=== PATIENT | male | born 1980 | race Caucasian/White ===

== ENCOUNTER → 2020-04-09 14:10 | Outpatient (CLI) | payer OTHER, SELFPAY ==
--- NOTE | 2020-04-09 14:11 | DI.RAD.S_ITS ---
PROCEDURE: XR CHEST 2V INDICATIONS: Cough, latent TB? TECHNIQUE: 2 views of the chest were acquired. COMPARISON: [facility], , CHEST 1 VIEW, 11/28/2014, 14:15. FINDINGS: Surgical changes and devices: None. Lungs and pleura: Lungs are clear. No pleural effusions or pneumothorax. Mediastinum: Mediastinal contours are normal. Heart size is normal. Bones and chest wall: No suspicious bony abnormalities. Soft tissues appear unremarkable. IMPRESSION: No acute cardiopulmonary disease. No findings to suggest active TB. Dictated by: Megan Sanabria M.D. on 04/09/2020 at 14:32 Approved by: Megan Saanbria M.D. on 04/09/2020 at 14:33
[2020-04-09 14:47] LABS: Add Manual Diff / Slide Review NO; Basophils Absolute Auto 0 /uL (0-100); Basophils Percent Auto 0.5 % (0-2); Eosinophils Absolute Auto 200 /uL (0-450); Eosinophils Percent Auto 4.4 % (2-4); Hematocrit 42.8 % (41-53); Hemoglobin 14.4 g/dL (13.5-17.5); Lymphocytes Absolute Auto 1800 /uL (1100-4500); Mean Corpuscular HGB Conc 33.6 % (30-36); Mean Corpuscular Hemoglobin 31.8 PG (26-34); Mean Corpuscular Volume 94.6 fL (80-100); Monocytes Absolute Auto 400 /uL (0-900); Monocytes Percent Auto 10.4 % (3-14); Neutrophils Absolute Auto 1700 /uL (1500-7000); Neutrophils Percent Auto 41.7 % (50-75); Platelet Count 241 X10^3/uL (150-400); Red Blood Cell Count 4.52 X10^6/uL (4.5-5.9); Red Cell Distribution Width 12.2 % (11.6-14.8); White Blood Cell Count 4.1 X10^3/uL (4.5-11.0)
[2020-04-09 14:55] LABS: Alanine Aminotransferase 58 IU/L (<50); Albumin 4.6 g/dL (3.5-5.0); Albumin Globulin Ratio 1.4 (1.0-2.8); Alkaline Phosphatase 55 U/L (38-126); Aspartate Aminotransferase 45 IU/L (17-59); BUN Creatinine Ratio 13.5 (6-22); Bilirubin Total 0.5 mg/dL (0.2-1.3); Blood Urea Nitrogen 13 mg/dL (9-20); Calcium 9.5 mg/dL (8.4-10.2); Carbon Dioxide 32 mmol/L (22-32); Chloride 100 mmol/L (98-107); Cholesterol 125 mg/dL (140-199); Estimated Glomerular Filt Rate > 60.0 mL/min (>60); Globulin 3.3 g/dL (1.7-4.1); Glucose 95 mg/dL (70-100); HDL Cholesterol 34 mg/dL (40-60); HEMOLYSIS 17 (0-50); LDL Cholesterol Calculated 50 mg/dL (<100); Potassium 4.1 mmol/L (3.4-5.1); Sodium 139 mmol/L (137-145); Total Protein 7.9 g/dL (6.3-8.2); Triglycerides 207 mg/dL (35-150)
[2020-04-09 14:56] LABS: C-Reactive Protein Quant < 0.5 mg/dL (<1.0)
[2020-04-09 15:00] LABS: Prealbumin 32.7 mg/dL (17.6-36.0)
[2020-04-09 15:10] LABS: Hemoglobin A1C% w Est Avg Glu 5.4 % (4.0-6.0)
[2020-04-09 15:20] LABS: Erythrocyte Sedimentation Rate 3 MM/HR (0-15)
[2020-04-11 15:37] LABS: QuantiFERON Mitogen Value 7.69 IU/mL (.); QuantiFERON Nil Value 0.33 IU/mL (.); QuantiFERON TB Gold Plus Negative (Negative); QuantiFERON TB1 Ag Value 0.23 IU/mL (.); QuantiFERON TB2 Ag Value 0.18 IU/mL (.)
== END ==
PROVIDERS: PCP Student in an Organized Health Care Education/Training Program; Referring Provider Student in an Organized Health Care Education/Training Program; Visit Provider Student in an Organized Health Care Education/Training Program
DX: R05 Cough (principal); R63.4 Abnormal weight loss; R73.9 Hyperglycemia, unspecified; Z13.220 Encounter for screening for lipoid disorders
CPT/HCPCS: 71046; 80053; 80061; 83036; 84134; 85025; 85651; 86140; 86480

== ENCOUNTER → 2020-09-13 08:12 | Outpatient (CLI) | payer OTHER, SELFPAY ==
--- NOTE | 2020-09-13 08:13 | DI.MRI.S_ITS ---
PROCEDURE: MR THORACIC SPINE WO CON INDICATIONS: Neck pain and right arm motor/sensory disturbances TECHNIQUE: Noncontrast sagittal T1 spine echo and T2 fast spin echo, sagittal STIR, axial T1 and T2 fast spin echo through the thoracic spine. COMPARISON: None. FINDINGS: Image quality: Excellent. Alignment and Curvature: There is normal bony alignment. Bone Marrow: Marrow is of normal overall signal. No acute vertebral body compression fractures. Spinal Cord: Visualized spinal cord is normal in size and signal. There is only a slight degree of degenerative disc height reduction and desiccation at the junction between the upper and middle thirds of the thoracic spine, but without visualized evidence of spinal or foraminal stenosis, or disc herniation. Paraspinous Soft Tissues: No paravertebral masses. Miscellaneous: On axial images, central canal and foramina appear widely patent at all scanned levels. IMPRESSION: Minimal degenerative changes at the upper thoracic spine as discussed, without spinal or foraminal stenosis through this region impinging on individual nerve roots or the thoracic cord. No disc herniation is seen. Dictated by: Giorgio Mccrary M.D. on 09/15/2020 at 15:21 Approved by: Giorgio Mccrary M.D. on 09/15/2020 at 15:22
--- NOTE | 2020-09-13 08:13 | DI.MRI.S_ITS ---
PROCEDURE: MR CERVICAL SPINE WO CON INDICATIONS: Neck pain and right arm motor/sensory disturbances TECHNIQUE: Noncontrast sagittal T1 spin echo and T2 fast spin echo, sagittal STIR, foraminal oblique sagittal T2 fast spin echo, and axial gradient echo or T2 fast spin echo through the cervical spine. COMPARISON: None. FINDINGS: Image quality: Excellent. Alignment and Curvature: There is normal bony alignment. Bone Marrow: Marrow demonstrates normal overall signal. Spinal Cord: Visualized spinal cord has normal size and signal. No cerebellar tonsillar herniation. Paraspinous Soft Tissues: No paravertebral masses. Prevertebral soft tissues are normal in thickness. C2-C3: Normal appearance. C3-C4: Normal appearance except for mild degenerative facet osteoarthritis and uncovertebral degenerative change on the right, producing mild narrowing of the right neural foramen and potential impingement on the right C4 nerve root. C4-C5: Symmetric facet and uncovertebral mild degenerative osteoarthritic change with mild narrowing of each neural foramen at this level, with potential for mild impingement on the course of the C5 nerve roots. C5-C6: Moderate degenerative disc disease, with disc height reduction and disc desiccation. There is an asymmetric posterior disc bulge, broad-based, greater at and to the left of midline. Additionally left-sided facet and uncovertebral osteoarthritis is present to a greater degree than that on the right with asymmetric left greater than right neural foraminal stenosis, with likelihood of bilateral left greater than right C6 nerve root impingement. C6-C7: There is moderate degenerative disc disease with a posterior disc bulge. This effaces CSF from the anterior thecal sac to only a mild degree, and the anterior cord is not distorted in this area. Bilateral mild facet osteoarthritis produces mild bilateral foraminal stenosis to the degree that impingement on the course of the C7 nerve roots likely is present, symmetric. C7-T1: Normal appearance. IMPRESSION: The degenerative disc disease and facet osteoarthritis along the cervical spine produces both symmetric and asymmetric impingement on nerve roots and the cervical cord, to a [id number] degree as discussed in detail by level in the body of the report above. No prior trauma or significant subluxation is seen. No disc herniation is found. Multilevel [id number] foraminal stenosis is present and the spinal stenosis is most prominent at C5-C6, left greater than right. Dictated by: Giorgio Mccrary M.D. on 09/15/2020 at 15:10 Approved by: Giorgio Mccrary M.D. on 09/15/2020 at 15:20
== END ==
PROVIDERS: PCP Student in an Organized Health Care Education/Training Program; Referring Provider Student in an Organized Health Care Education/Training Program; Visit Provider Student in an Organized Health Care Education/Training Program
DX: M47.812 Spondylosis without myelopathy or radiculopathy, cervical region (principal); M50.322 Other cervical disc degeneration at C5-C6 level; M48.02 Spinal stenosis, cervical region; R20.2 Paresthesia of skin
CPT/HCPCS: 72141; 72146

== ENCOUNTER 2020-09-15 14:09 | Emergency (ER) | payer OTHER, SELFPAY ==
[2020-09-15 14:13] VITALS: BP 141/86; PULSE 68; RESP 24; TEMP 36.4; O2SAT 99
[2020-09-15 18:06] LABS: Add Manual Diff / Slide Review NO; Basophils Absolute Auto 0 /uL (0-100); Basophils Percent Auto 0.7 % (0-2); Eosinophils Absolute Auto 0 /uL (0-450); Eosinophils Percent Auto 0.7 % (2-4); Hematocrit 44.2 % (41-53); Hemoglobin 15.2 g/dL (13.5-17.5); Lymphocytes Absolute Auto 1900 /uL (1100-4500); Lymphocytes Percent Auto 40.8 % (25-40); Mean Corpuscular HGB Conc 34.3 % (30-36); Mean Corpuscular Hemoglobin 32.8 PG (26-34); Mean Corpuscular Volume 95.5 fL (80-100); Monocytes Absolute Auto 300 /uL (0-900); Monocytes Percent Auto 7.5 % (3-14); Neutrophils Absolute Auto 2300 /uL (1500-7000); Neutrophils Percent Auto 50.3 % (50-75); Platelet Count 221 X10^3/uL (150-400); Red Blood Cell Count 4.63 X10^6/uL (4.5-5.9); Red Cell Distribution Width 12.4 % (11.6-14.8); White Blood Cell Count 4.6 X10^3/uL (4.5-11.0)
[2020-09-15 18:18] LABS: Alanine Aminotransferase 22 IU/L (<50); Albumin 4.5 g/dL (3.5-5.0); Albumin Globulin Ratio 1.3 (1.0-2.8); Alkaline Phosphatase 55 U/L (38-126); Aspartate Aminotransferase 26 IU/L (17-59); BUN Creatinine Ratio 10.6 (6-22); Bilirubin Total 0.8 mg/dL (0.2-1.3); Blood Urea Nitrogen 10 mg/dL (9-20); Calcium 9.6 mg/dL (8.4-10.2); Carbon Dioxide 34 mmol/L (22-32); Chloride 101 mmol/L (98-107); Estimated Glomerular Filt Rate > 60.0 mL/min (>60); Globulin 3.5 g/dL (1.7-4.1); Glucose 105 mg/dL (70-100); HEMOLYSIS < 15 (0-50); Lactate (Lactic Acid) 0.7 mmol/L (0.7-2.1); Potassium 4.1 mmol/L (3.4-5.1); Sodium 139 mmol/L (137-145)
[2020-09-15 19:22] VITALS: BP 139/82; PULSE 60; RESP 16; O2SAT 99
--- NOTE | 2020-09-15 19:44 | ED_ITS ---
HPI - Syncope General Chief Complaint: Syncope Stated Complaint: bunch of back issues, constant pain & stiffness Time Seen by Provider: 09/15/20 17:56 Source: patient and family Mode of arrival: Ambulatory Limitations: no limitations History of Present Illness HPI narrative: 40-year-old male nonsmoker with extensive history of chronic neck and back pain presents with his significant other and a chief complaint of 2 syncopal episodes earlier today. He states that he was having an episode severe midline back pain in the absence of any injury, fever or chills. He states he was bending over when his significant other was pressing on his back and caused a sharp episode of pain and when he attempted to stand up he became lightheaded and collapsed, stating he was either very close or completely passed out, she witnessed this and states that his episode lasted less than 10 seconds and when he tried standing again his symptoms repeated. He has had no nausea, vomiting or diarrhea. He has had no recent illness or medication change. He has no ongoing symptoms. He recently had MRI of neck and back for ongoing chronic pain with some episodes of weakness in his right arm. He is currently waiting for a call back regarding the findings. He denies any chest pain or shortness of breath. He denies any recent travel or history of blood clot. He did not lose control of his bladder. There was not a prolonged period of confusion, only a few seconds where he wondered what had happened MD complaint: loss of consciousness, felt faint, almost passed out and collapsed Onset (ago): hour(s) -: second(s) Prodromal symptoms: lightheaded Witnessed: yes - by bystander Context: standing up and related to severe pain Injuries sustained associated with event: none Current symptoms: none Treatments prior to arrival: none Related Data Home Medications Medication Instructions Recorded Confirmed THC #1 ea 04/09/20 09/05/20 cyclobenzaprine 10 mg tablet 10 mg PO DAILY PRN tab 04/09/20 09/05/20 ipratropium bromide 0.03 % nasal 2 spray NASAL BID 04/09/20 09/05/20 spray Previous Rx's Medication Instructions Recorded fluticasone propionate 50 2 spray INTRANASAL DAILY #15.8 ml 09/09/20 mcg/actuation nasal spray,suspension losartan 25 mg tablet 25 mg PO DAILY #90 tab 09/09/20 cyclobenzaprine 10 mg PO TID PRN #14 tab 09/15/20 hydrocodone-acetaminophen 1 tab PO Q4-6H PRN #20 tab 09/15/20 prednisone 20 mg tablet See Rx Instructions PO DAILY 7 09/15/20 Days #10 tab Allergies Allergy/AdvReac Type Severity Reaction Status Date / Time buspirone AdvReac Intermediate Agitation Verified 09/05/20 15:21 gabapentin AdvReac Intermediate Loss of Verified 09/05/20 15:59 libido mirtazapine AdvReac Intermediate Excessive Verified 09/05/20 15:21 sedation, muscle soreness Review of Systems Constitutional Constitutional: Denies chills, Denies fatigue, Denies fever(s), Denies frequent falls, Denies lethargy and Denies weakness Eyes Eyes: Denies change in vision, Denies eye discharge, Denies irritation and Denies loss of vision ENT Ears, Nose, Mouth, and Throat: Denies change in voice, Denies dizziness, Reports neck pain, Denies sore throat and Denies throat swelling Cardiovascular Cardiovascular: Denies chest pain, Reports syncope, Denies irregular heart rhythm, Denies lightheadedness, Denies palpitations, Denies dyspnea, Denies dyspnea on exertion and Denies orthopnea Respiratory Respiratory: Denies cough, Denies dyspnea, Denies dyspnea on exertion and Denies wheezing Gastrointestinal Gastrointestinal: Denies abdominal pain, Denies change in bowel habits, Denies diarrhea, Denies nausea and Denies vomiting Musculoskeletal Musculoskeletal: Reports back pain, Reports neck pain and Denies numbness Integumentary/Breasts Skin/Breast: Denies pruritus, Denies erythema, Denies rash and Denies wounds Neurologic Neurologic: Denies behavioral changes, Denies confusion, Denies dizziness, Reports syncope, Denies frequent falls, Denies loss of vision, Denies numbness and Denies weakness Psychiatric Psychiatric: Denies anxiety, Denies behavioral changes, Denies confusion, Denies depression, Denies homicidal ideation and Denies suicidal ideation Endocrine Endocrine: Denies fatigue, Denies flushing and Denies palpitations Hematologic/Lymphatic Hematologic/Lymphatic: Denies easy bruising Allergic/Immunologic Allergic/Immunologic: Denies urticaria, Denies throat swelling and Denies wheezing Patient History Medical History Ankle pain (~1999) Anxiety Chicken pox Chronic back pain (~1999) Foot pain Fractures Hearing loss (~1998) Positive PPD (~1998) Recurrent sinusitis (~2000) Restless leg syndrome (~2016) Shoulder pain (~2012) Substance abuse TIA (transient ischemic attack) (~2014) Tinnitus Surgical History History of nasal surgery (~02/2003) Family History Father History of heart disease Hyperlipidemia Hypertension Stroke Brother Hypertension Hyperlipidemia Mental health problem Grandfather History of heart disease Hyperlipidemia Hypertension Social History Smoking Status: Never smoker Smoking Status: Never smoker Exam Narrative Exam Narrative: GENERAL: [40] year old patient appears stated age. Well- nourished, well-developed patient, in mild distress. GCS 15 HEAD: Atraumatic. Normocephalic. EYES: Pupils equal round and reactive. Extraocular motions intact. No scleral icterus. No injection or drainage. ENT: Nose without bleeding, purulent drainage. Throat without erythema, tonsillar hypertrophy or exudate. Airway patent. NECK: Trachea midline. Non tender CARDIOVASCULAR: Regular rate and rhythm without murmurs, gallops, or rubs. RESPIRATORY: Clear to auscultation. Breath sounds equal bilaterally. No wheezes, rales, or rhonchi. GASTROINTESTINAL: Abdomen soft, non-tender, nondistended. EXTREMITIES: No edema or joint tenderness. BACK: Mild tenderness throughout, sometimes midline and bony, other times in the paraspinal musculature without deformity or crepitance. No flank tenderness. No saddle anesthesia, bilateral lower extremities 5/5 strength, patient ambulatory without difficulty NEURO: AOx3. SKIN: No rash or erythema of visible areas Initial Vital Signs Initial Vital Signs: Vital Signs Temperature 97.5 F L 09/15/20 14:13 Pulse Rate 68 09/15/20 14:13 Respiratory Rate 24 09/15/20 14:13 Blood Pressure 141/86 H 09/15/20 14:13 Pulse Oximetry 99 09/15/20 14:13 Course Orders Ordered: ED Orders 09/15/20 17:40 EKG-12 Lead Stat 09/15/20 17:58 Complete Blood Count AUTO DIFF Stat Comprehensive Metabolic Panel Stat Lactate (Lactic Acid) Stat Vital Signs Vital signs: Vital Signs - 8 hr 09/15/20 14:13 09/15/20 19:22 Temperature 97.5 F L Pulse Rate 68 60 Respiratory Rate 24 16 Blood Pressure 141/86 H 139/82 Pulse Oximetry 99 99 MDM - Syncope Lab Data Result diagrams: 09/15/20 17:58 09/15/20 17:58 Labs: Lab Results 09/15/20 09/15/20 09/15/20 Range/Units 17:58 17:58 17:58 WBC 4.6 (4.5-11.0) X10^3/uL RBC 4.63 (4.5-5.9) X10^6/uL Hgb 15.2 (13.5-17.5) g/dL Hct 44.2 (41-53) % MCV 95.5 (80-100) fL MCH 32.8 (26-34) PG MCHC 34.3 (30-36) % RDW 12.4 (11.6-14.8) % Plt Count 221 (150-400) X10^3/uL Neut % (Auto) 50.3 (50-75) % Lymph % (Auto) 40.8 H (25-40) % Bell % (Auto) 7.5 (3-14) % Eos % (Auto) 0.7 L (2-4) % Baso % (Auto) 0.7 (0-2) % Neut # (Auto) 2300 (9782-3577) /uL Lymph # (Auto) 1900 (9009-0094) /uL Bell # (Auto) 300 (0-900) /uL Eos # (Auto) 0 (0-450) /uL Baso # (Auto) 0 (0-100) /uL Sodium 139 (137-145) mmol/L Potassium 4.1 (3.4-5.1) mmol/L Chloride 101 (98-107) mmol/L Carbon Dioxide 34 H (22-32) mmol/L BUN 10 (9-20) mg/dL Creatinine 0.94 (0.66-1.25) mg/dL Estimated GFR > 60.0 (>60) mL/min BUN/Creatinine Ratio 10.6 (6-22) Glucose 105 H (70-100) mg/dL Lactate 0.7 (0.7-2.1) mmol/L Calcium 9.6 (8.4-10.2) mg/dL Total Bilirubin 0.8 (0.2-1.3) mg/dL AST 26 (17-59) IU/L ALT 22 (<50) IU/L Alkaline Phosphatase 55 (38-126) U/L Total Protein 8.0 (6.3-8.2) g/dL Albumin 4.5 (3.5-5.0) g/dL Globulin 3.5 (1.7-4.1) g/dL Albumin/Globulin Ratio 1.3 (1.0-2.8) ECG Data Attestation: I personally reviewed and interpreted this ECG as follows: Interpretation: EKG is normal sinus rhythm rate [60 ] and free of any signs of ischemia or ectopy. No ST segmental elevation or depression. No T wave inversions MDM Narrative Medical decision making narrative: Multiple etiologies for patient's symptoms considered including: [Vasovagal syncope likely a consequence of severe pain and change in position versus cardiogenic versus other] Patient's symptoms improved over duration of stay with above-stated therapies. Findings and discharge diagnosis discussed with patient/family followed by verbalization of understanding Return precautions discussed with patient/family whom verbalize understanding. Discharge Plan Departure Patient Disposition: Home Clinical Impression: Vasovagal syncope Chronic back pain Qualifiers: Back pain location: low back pain Back pain laterality: unspecified Sciatica presence: without sciatica Qualified Code(s): M54.5 - Low back pain Instructions: DI for Syncope in Adults (Fainting), Low Back Pain Activity Restrictions/Additional Instructions: *You have been diagnosed with [to episodes of syncope (passing out) likely due to a combination of severe pain and change in position. No evidence of surgical emergency on your exam, labs, or imaging. ] *What to do: *Take medications as directed: Prescription sent to [facility] as we discussed *Follow up with your primary care provider in 2-3 days, call for an appointment. Let them know you were seen in the Emergency Department and that we ask that you be seen in follow up *Return to ER if you should have any new, worsening or concerning symptoms, such as [weakness, fever >101F, shaking chills, or other bothersome symptoms ] Prescriptions: New cyclobenzaprine 10 mg tablet 10 mg PO TID PRN (Reason: muscle spasm) Qty: 14 RF: 0 hydrocodone-acetaminophen 5-325 mg tablet 1 tab PO Q4-6H PRN (Reason: pain) Qty: 20 RF: 0 No Action losartan 25 mg tablet 25 mg PO DAILY Qty: 90 RF: 3 fluticasone propionate [Flonase Allergy Relief] 50 mcg/actuation spray,jared pension 2 spray intranasal DAILY Qty: 15.8 RF: 11 prednisone 20 mg tablet See Rx Instructions PO DAILY 7 Days Qty: 10 RF: 0 cyclobenzaprine 10 mg tablet 10 mg PO DAILY PRNRF: 0 ipratropium bromide 0.03 % spray,non-aerosol 2 spray NASAL BID RF: 0 (DME) THC Qty: 1 RF: 0 Referrals: Edinson Ng MD [Primary Care Provider] - Olu Clement DO [Physician] -
== END 2020-09-15 20:09 | disposition home or self-care (01) ==
PROVIDERS: Emergency Medicine; Emergency Provider Emergency Medicine; PCP Student in an Organized Health Care Education/Training Program
DX: R55 Syncope and collapse (principal); M54.5 Low back pain; M54.2 Cervicalgia; R06.02 Shortness of breath
CPT/HCPCS: 36415; 80053; 83605; 85025; 93005; 99281; 99284

== ENCOUNTER → 2020-09-16 10:28 | Outpatient (ROUT) | payer OTHER, SELFPAY ==
[2020-09-16 10:41] LABS: Cholesterol 182 mg/dL (140-199); HDL Cholesterol 47 mg/dL (40-60); LDL Cholesterol Calculated 110 mg/dL (<100); Triglycerides 124 mg/dL (35-150)
== END ==
PROVIDERS: PCP Student in an Organized Health Care Education/Training Program; Visit Provider Student in an Organized Health Care Education/Training Program
DX: E78.2 Mixed hyperlipidemia (principal)
CPT/HCPCS: 80061

== ENCOUNTER → 2020-10-01 13:56 | Outpatient (CLI) | payer OTHER, SELFPAY ==
--- NOTE | 2020-10-01 13:59 | DI.RAD.S_ITS ---
PROCEDURE: XR CERVICAL SPINE 2V OR 3V INDICATIONS: Back pain TECHNIQUE: 3 view(s) of the cervical spine were acquired. COMPARISON: [facility], MR, MR CERVICAL SPINE WO CON, 09/13/2020, 8:26. FINDINGS: Bones: No fractures or dislocations to the C7-T1 level. The lateral masses of C1 appear intact on the odontoid view. No suspicious bony lesions. There is multilevel trace retrolisthesis throughout the cervical spine. Moderate disc space narrowing is present at C5-6, mild C6-7. Minimal anterior osteophytes are noted. Multilevel mild uncovertebral hypertrophy is present. Soft tissues: No prevertebral soft tissue swelling. IMPRESSION: Degenerative changes most notable at C5-6 and C6-7. Dictated by: La Pedersen M.D. on 10/01/2020 at 17:12 Approved by: La Pedersen M.D. on 10/01/2020 at 17:13
== END ==
PROVIDERS: PCP Student in an Organized Health Care Education/Training Program; Referring Provider Student in an Organized Health Care Education/Training Program; Visit Provider Student in an Organized Health Care Education/Training Program
DX: M47.22 Other spondylosis with radiculopathy, cervical region (principal); M54.42 Lumbago with sciatica, left side; M50.222 Other cervical disc displacement at C5-C6 level; F19.10 Other psychoactive substance abuse, uncomplicated; G89.29 Other chronic pain
CPT/HCPCS: 72040; 99214

== ENCOUNTER → 2020-11-04 14:02 | Outpatient (CLI) | payer OTHER, SELFPAY ==
[2020-11-04 16:35] LABS: COVID19 -Nasal RAPID Negative (Negative)
== END ==
PROVIDERS: PCP Student in an Organized Health Care Education/Training Program; Visit Provider Physical Medicine & Rehabilitation
DX: Z01.812 Encounter for preprocedural laboratory examination (principal); Z20.822 Contact with and (suspected) exposure to COVID-19
CPT/HCPCS: 87635; C9803

== ENCOUNTER 2020-11-06 08:53 | Outpatient (CLI) | payer OTHER, SELFPAY ==
[2020-11-06] VITALS (9 sets, daily range): BP systolic 124–147; BP diastolic 72–91; PULSE 64–86; RESP 16–18; TEMP 36.5; O2SAT 99–100
--- NOTE | 2020-11-06 08:58 | DI.RAD.S_ITS ---
PROCEDURE: PAIN C/T TRANFORAMINAL INJECT INDICATIONS: SPINAL STENOSIS COMPARISON: [facility], CR, XR CERVICAL SPINE 2V OR 3V, 10/01/2020, 14:00. FINDINGS: Fluoroscopic spot filming was performed to verify placement of a spinal needle at the C6-C7 level, as labeled on the films. Appropriate location of the needle tip was confirmed by injection of iodinated contrast. IMPRESSION: No significant intraprocedural abnormality. Dictated by: Brian Robertson M.D. on 11/06/2020 at 9:27 Approved by: Brian Robertson M.D. on 11/06/2020 at 9:27
[2020-11-06] MEDS: fentaNYL 100 MCG/2 ML INJ 50 MCG IV ×2 (09:35→09:40)
[2020-11-06] MEDS: MIDAZOLAM 5 MG/5 ML VIAL IV (09:40)
[2020-11-06] MEDS: IOPAMIDOL 15 ML VIAL 3 ML INJ (09:48)
[2020-11-06] MEDS: BUPIVACAINE 0.25% (PF) VIAL 2 ML INJ (09:49)
[2020-11-06] MEDS: DEXAMETHASONE 10 MG/ML VIAL 30 MG INJ (09:51)
--- NOTE | 2020-11-06 09:53 | P.PCN_ITS ---
Date/Time/Diagnoses Date of procedure: 11/06/20 Time of procedure: 09:53 Pre-procedure diagnosis: 1. CERVICAL STENOSIS, 2. CERVICAL HNP WITH UPPER EXTREMITY RADICULAR FEATURES Post-procedure diagnosis: same Procedure Notes Procedure: 1. FLUORSCOPICALLY GUIDED CONTRAST CONTROLLED INTERLAMINAR EPIDURAL STEROID INJECTION - C6/7 TL YEISON Indications: Lorne is referred by Dr. Ng for treatment of Cervical HNP with Upper Extremity Paresthesias. Physician: Olu Clement Total Fluoroscopy time (seconds): 21 Total sedation minutes: 14 Complications: none Procedure in detail & Post-procedure care: FINDINGS Cervical Stenosis due to disc deterioration and nerve root irritation and nerve root irritation DESCRIPTION OF PROCEDURE Fluoroscopically guided, contrast-controlled C6/7 translaminar epidural steroid injection with conscious sedation. Following review of allergy and review of potential side effects and complications, including, but not necessarily limited to, infection, allergic reaction, local tissue breakdown, temporary as well as permanent nerve injury, stroke, paralysis, and possible , the patient indicated that patient understood and agreed to proceed. An informed consent document was signed by the patient, witnessed by a nurse, and placed in the patient's chart. Additionally, other treatment options including modalities, medications, and physical therapy were reviewed with the patient. After review of previous anaesthesic history and IV conscious sedation the patient was deemed safe to proceed with today?s procedure with IV conscious sedation as ASA class II designation. Safety time-out was performed to confirm patient ID, procedure to be performed and site of procedure. IV sedation was accomplished with a combination of 5mg of Versed and 100mcg of Fentanyl administered by the RN after DO order, titrated to patient comfort during the course of the procedure while the patient remained responsive to all verbal commands. In the prone position, following sterile prep and drape of the cervical region, the C6/7 translaminar space was identified fluoroscopically. The skin was anesthetized via a 25-gauge 1.5-inch needle with 1% lidocaine solution. At this point, a 25-gauge, 2.5-inch short bevel spinal needle was atraumatically introduced and advanced under fluoroscopic guidance into epidural space at the C6/7 translaminar space. Depth was confirmed on lateral view. Radiological data, including multiple fluoroscopic views of the cervical spine, reveal a spinal needle at the C6/7 translaminar space. Lateral views then show placement of the needle in the epidural space. Subsequent views show contrast material flowing superiorly and inferiorly in the epidural space. DSA fluoroscopy with live contrast injection, once again, confirmed no vascular or intrathecal uptake. At this point, using loss of resistance technique with saline and air, the epidural space was entered. Following negative aspiration, injection of a pproximately 1.5 cc of [id number]-[id number] with live fluoroscopy in the AP view confirmed epidural flow in the epidural space without vascular or intrathecal uptake observed. Subsequently, a test dose of 1 cc of 1% lidocaine solution was injected and patient was observed for two minutes without signs or symptoms of complications, including abdominal pain, shortness of breath, bilateral upper or lower extremity weakness, nausea and vomiting, prior to steroid injection. At this point, 3cc or 30mg of dexamethasone was then injected without incident. The patient tolerated the procedure well without signs or symptoms of complications prior to being transferred to the recovery area for further monitoring, The patient was then transferred to the recovery area where they were observed for an appropriate period of time after the injection. The patient reported a VAS score of 6 prior to the procedure and a post-procedure VAS of 0. POST OP INSTRUCTIONS The patient was provided a Pain Log to continue to record their response to the target-specific procedure prior to follow-up visit with the referring provider. Additionally, specific post-injection care instructions and a contact number to our office were provided if concerns arise regarding possible complications associated with the procedure are suspected.
== END 2020-11-06 10:15 | disposition home or self-care (01) ==
LOC: RAD 08:57
PROVIDERS: PCP Student in an Organized Health Care Education/Training Program; Referring Provider Physical Medicine & Rehabilitation; Visit Provider Physical Medicine & Rehabilitation
DX: M48.02 Spinal stenosis, cervical region (principal); M50.123 Cervical disc disorder at C6-C7 level with radiculopathy
CPT/HCPCS: 64479; 99152; J1100; J2250; J3010

== ENCOUNTER → 2021-03-16 08:08 | Outpatient (CLI) | payer OTHER, SELFPAY ==
[2021-03-16 14:28] LABS: COVID19 -Nasal RAPID Negative (Negative)
== END ==
PROVIDERS: PCP Student in an Organized Health Care Education/Training Program; Visit Provider Physical Medicine & Rehabilitation
DX: Z20.822 Contact with and (suspected) exposure to COVID-19 (principal)
CPT/HCPCS: 87635; C9803

== ENCOUNTER 2021-03-17 08:52 | Outpatient (CLI) | payer OTHER, SELFPAY ==
[2021-03-17] VITALS (7 sets, daily range): BP systolic 109–132; BP diastolic 64–83; PULSE 76–89; RESP 12–21; TEMP 37.1; O2SAT 99–100
--- NOTE | 2021-03-17 08:56 | DI.RAD.S_ITS ---
PROCEDURE: PAIN C/T FACET INJ/BLK 1ST L INDICATIONS: SPINAL STENOSIS COMPARISON: [facility], CR, XR CERVICAL SPINE 2V OR 3V, 10/01/2020, 14:00. [facility], XA, PAIN C/T TRANFORAMINAL INJECT, 11/06/2020, 9:42. FINDINGS: Fluoroscopic spot filming was performed to verify placement of spinal needles at the left C5-C6 and C6-C7 level(s), as labeled on the films. Appropriate location(s) of the needle tip(s) was confirmed by injection of iodinated contrast. IMPRESSION: Intraprocedural examination within normal limits. Dictated by: Brian Robertson M.D. on 03/17/2021 at 8:49 Approved by: Brian Robertson M.D. on 03/17/2021 at 8:50
[2021-03-17] MEDS: MIDAZOLAM 5 MG/5 ML VIAL IV (09:21)
[2021-03-17] MEDS: IOPAMIDOL 15 ML VIAL 3 ML INJ (09:29)
[2021-03-17] MEDS: BUPIVACAINE 0.5% (PF) VIAL 2 ML INJ (09:29)
[2021-03-17] MEDS: DEXAMETHASONE 10 MG/ML VIAL 20 MG INJ (09:32)
--- NOTE | 2021-03-17 09:37 | P.PCN_ITS ---
Date/Time/Diagnoses Date of procedure: 03/17/21 Time of procedure: 09:37 Pre-procedure diagnosis: 1. FACET ARTHROPATHY 2. AXIAL NECK PAIN Post-procedure diagnosis: same Procedure Notes Procedure: 1. FLUOROSCOPICALLY GUIDED, CONTRAST-CONTROLLED LEFT C5/6 AND C6/7 FACET JOINT INJECTIONS WITH CONSCIOUS SEDATION. Indications: Lorne is referred by Dr. Ng for treatment of Axial Neck Pain Physician: Olu Clement Total Fluoroscopy time (seconds): 11 Total sedation minutes: 12 Complications: none Procedure in detail & Post-procedure care: DESCRIPTION OF PROCEDURE Fluoroscopically guided, contrast-controlled left C5/6 and C6/7 facet joint injections with conscious sedation. Following review of allergy and review of potential side effects and complications, including, but not necessarily limited to, infection, allergic reaction, local tissue breakdown, stroke, temporary or permanent nerve injury and paralysis, the patient indicated that the patient understood and agreed to proceed. An informed consent document was signed by the patient, witnessed by a nurse, and placed in the patient's chart. Additionally, other treatment options including medications, modalities, and physical therapy were reviewed with the patient. After review of previous anaesthesic history and IV conscious sedation the patient was deemed safe to proceed with today?s procedure with IV conscious sedation as ASA class II designation. Safety time-out was performed to confirm patient ID, procedure to be performed and site of procedure. IV sedation was accomplished with a combination of 3mg of Versed was administered by the RN after DO order, titrated to patient comfort during the course of the procedure while the patient remained responsive to all verbal commands In the prone position, following sterile prep and drape of the cervical spine region, the posterior aspect of the left C5/6 and C6/7 facet joints were identified fluoroscopically. The skin was anesthetized via a 25-gauge 1.5-inch needle with 1% lidocaine solution into the corresponding facet joints. At this point, a 25-gauge 2.5-inch spinal needle was atraumatically introduced and advanced under fluoroscopic guidance into the corresponding facet joints. Following negative aspiration, injections of approximately 0.2cc of Isovue 200 confirmed interarticular placement without vascular uptake. At this point, a total of 1cc including 0.5cc or 5mg of dexamethasone combined with 0.5cc of 1% lidocaine solution was injected without complication into each of the corresponding facet joints. The procedure tolerated the procedure well without signs or symptoms of complications prior to transfer to the recovery area continued monitoring without incident. The patient was then transferred to the recovery area where they were observed for an appropriate period of time after the injection. The patient reported a VAS score of 7 prior to the procedure and a post- procedure VAS of 0. POST OP INSTRUCTIONS They were provided a Pain Log to continue to record their response to the target-specific procedure prior to their follow-up visit with their referring physician. Additionally, specific post-injection care instructions and a contact number to our office were provided if concerns arise regarding possible complications associated with the procedure are suspected.
== END 2021-03-17 09:55 | disposition home or self-care (01) ==
LOC: RAD 08:56
PROVIDERS: PCP Student in an Organized Health Care Education/Training Program; Referring Provider Physical Medicine & Rehabilitation; Visit Provider Physical Medicine & Rehabilitation
DX: M47.812 Spondylosis without myelopathy or radiculopathy, cervical region (principal); M54.2 Cervicalgia
CPT/HCPCS: 64490; 64491; 99152; J1100; J2250; J3010

== ENCOUNTER → 2021-04-16 17:24 | Outpatient (CLI) | payer OTHER, SELFPAY ==
--- NOTE | 2021-04-16 17:27 | DI.MRI.S_ITS ---
PROCEDURE: MR LUMBAR SPINE WO CON INDICATIONS: Low back pain with left sided sciatica over several years. TECHNIQUE: Noncontrast sagittal T1 spin echo and T2 fast echo, sagittal STIR, axial T1 and T2 fast spin echo through the lumbar spine. In cases with scoliosis, additional coronal T2 fast spin echo may be performed. COMPARISON: None. FINDINGS: Image quality: Excellent. Alignment and Curvature: There is normal bony alignment. Bone Marrow: Marrow is of normal overall signal. No acute vertebral body compression fractures. Spinal Cord: Conus medullaris terminates at the L1 level. Visualized cord demonstrates normal signal and size. Paraspinous Soft Tissues: No paravertebral masses. T12-L1: No canal stenosis or foraminal stenosis. L1-L2: No canal stenosis or foraminal stenosis. L2-L3: Facet hypertrophy. No canal stenosis or foraminal stenosis. L3-L4: Facet hypertrophy. No canal stenosis or foraminal stenosis. L4-L5: Facet hypertrophy. L5-S1: Disc desiccation and moderate disc height loss. Moderate diffuse broad-based disc protrusion mildly impinges on the bilateral S1 nerve roots in the lateral recesses. Bilateral facet hypertrophy. Mild canal stenosis. Moderate bilateral foraminal narrowing with mild flattening deformity on the exiting bilateral L5 nerve roots, left greater than right. IMPRESSION: 1. Multilevel facet arthropathy. 2. At L5-S1, there is moderate diffuse broad-based disc protrusion which mildly impinges on the bilateral S1 nerve roots in the lateral recesses. There is mild canal stenosis. There is moderate bilateral foraminal narrowing, left greater than right. Dictated by: Efrain Harris M.D. on 04/17/2021 at 8:07 Approved by: Efrain Harris M.D. on 04/17/2021 at 8:12
== END ==
PROVIDERS: PCP Student in an Organized Health Care Education/Training Program; Referring Provider Student in an Organized Health Care Education/Training Program; Visit Provider Student in an Organized Health Care Education/Training Program
DX: M54.40 Lumbago with sciatica, unspecified side (principal)
CPT/HCPCS: 72148

== ENCOUNTER → 2021-07-28 13:07 | Outpatient (CLI) | payer OTHER, SELFPAY ==
[2021-07-28 16:01] LABS: COVID19 -Nasal RAPID Negative (Negative)
== END ==
PROVIDERS: PCP Student in an Organized Health Care Education/Training Program; Referring Provider Physical Medicine & Rehabilitation; Visit Provider Physical Medicine & Rehabilitation
DX: Z20.822 Contact with and (suspected) exposure to COVID-19 (principal)
CPT/HCPCS: 87635; C9803

== ENCOUNTER 2021-07-30 09:43 | Outpatient (CLI) | payer OTHER, SELFPAY ==
[2021-07-30] VITALS (9 sets, daily range): BP systolic 116–153; BP diastolic 70–90; PULSE 75–95; RESP 12–22; TEMP 36.6; O2SAT 95–100
--- NOTE | 2021-07-30 09:45 | DI.RAD.S_ITS ---
PROCEDURE: PAIN L/SI FACET INJ/BLK 1STL INDICATIONS: SPONDYLOSIS COMPARISON: [facility], , PAIN C/T FACET INJ/BLK 1ST L, 03/17/2021, 9:27. FINDINGS: Fluoroscopic spot filming was performed to verify placement of spinal needles on the left at the L4-L5 and L5-S1 level(s), as labeled on the films. Appropriate location(s) of the needle tip(s) was confirmed by injection of iodinated contrast. IMPRESSION: Intraprocedural examination within normal limits. Dictated by: Brian Robertson M.D. on 07/30/2021 at 10:04 Approved by: Brian Robertson M.D. on 07/30/2021 at 10:04
[2021-07-30] MEDS: fentaNYL 100 MCG/2 ML INJ 50 MCG IV (10:38)
[2021-07-30] MEDS: MIDAZOLAM 5 MG/5 ML VIAL IV (10:38)
[2021-07-30] MEDS: IOPAMIDOL 15 ML VIAL 3 ML INJ (10:41)
[2021-07-30] MEDS: BUPIVACAINE 0.5% (PF) VIAL 5 ML INJ (10:41)
[2021-07-30] MEDS: BETAMETHASONE 30 MG/5 ML MDV 12 MG INJ (10:42)
--- NOTE | 2021-07-30 10:50 | P.PCN_ITS ---
Date/Time/Diagnoses Date of procedure: 07/30/21 Time of procedure: 10:50 Pre-procedure diagnosis: 1. FACET ARTHROPATHY, 2. AXIAL LBP, 3. MULTILEVEL DDD Post-procedure diagnosis: same Procedure Notes Procedure: 1. FLUOROSCOPICALLY GUIDED CONTRAST CONTROLLED FACET JOINT INJECTIONS LEFT L4/5, L5/S1 Indications: Lorne is referred by Dr. Ng for treatment of Axial LBP Physician: Olu Clement Total Fluoroscopy time (seconds): 5 Total sedation minutes: 8 Complications: none Procedure in detail & Post-procedure care: FINDINGS Multilevel Facet Arthropathy with Clinically significant axial LBP DESCRIPTION OF PROCEDURE Fluoroscopically guided, contrast-controlled left L4/5, L5/S1 facet joint injections. Following review of allergy and review of potential side effects and complications, including, but not necessarily limited to, infection, allergic reaction, local tissue breakdown, stroke, temporary or permanent nerve injury, paralysis, and possible , the patient indicated that the patient understood and agreed to proceed. An informed consent document was signed by the patient, witnessed by a nurse, and placed in the patient's chart. Additionally, other treatment options including medications, modalities, and physical therapy were reviewed with the patient. After review of previous anaesthesic history and IV conscious sedation the patient was deemed safe to proceed with today?s procedure with IV conscious sedation as ASA class II designation. Safety time-out was performed to confirm patient ID, procedure to be performed and site of procedure. IV sedation was accomplished with a combination of 2mg of Versed and 50mcg of Fentanylwas administered by the RN after DO order, titrated to patient comfort during the course of the procedure while the patient remained responsive to all verbal commands. In the prone position, following sterile prep and drape of the lumbar region, the posterior aspect of the left L4/5, L5/S1 facet joints were identified fluoroscopically. The skin was anesthetized via a 25-gauge 1.5-inch needle with 1% lidocaine solution into the corresponding facet joints. At this point, a 22- gauge 3.5-inch spinal needle was atraumatically introduced and advanced under fluoroscopic guidance into the corresponding facet joints. Following negative aspiration, injections of approximately 0.2-cc of Isovue 200 confirmed int erarticular placement without vascular uptake. Radiological data, including multiple fluoroscopic views of the lumbosacral spine, reveal a spinal needle at the left L4/5, L5/S1 facet joints. Subsequent views show flow of contrast material both superiorly and inferiorly within the joint space without vascular or intrathecal uptake. At this point, a total of 0.5cc including a mixture of 0.25cc Marcaine and 0.25cc betamethasone was injected without complication into each of the corresponding facet joints. The procedure tolerated the procedure well without signs or symptoms of complications prior to transfer to the recovery area continued monitoring without incident. The patient was then transferred to the recovery area where they were observed for an appropriate period of time after the injection. The patient reported a VAS score of 7 prior to the procedure and a post-procedure VAS of 0. POST OP INSTRUCTIONS The patient was provided a Pain Log to continue to record their response to the target-specific procedure prior to follow-up visit with their referring physician. Additionally, specific post-injection care instructions and a contact number to our office were provided if concerns arise regarding possible complications associated with the procedure are suspected.
== END 2021-07-30 11:23 | disposition home or self-care (01) ==
PROVIDERS: PCP Student in an Organized Health Care Education/Training Program; Referring Provider Physical Medicine & Rehabilitation; Visit Provider Physical Medicine & Rehabilitation
DX: M47.816 Spondylosis without myelopathy or radiculopathy, lumbar region (principal); M47.817 Spondylosis without myelopathy or radiculopathy, lumbosacral region; M51.36 Other intervertebral disc degeneration, lumbar region; M51.37 Other intervertebral disc degeneration, lumbosacral region
CPT/HCPCS: 64493; 64494; J0702; J2250; J3010

== ENCOUNTER → 2021-08-17 10:06 | Outpatient (CLI) | payer OTHER, SELFPAY ==
[2021-08-17 13:44] LABS: COVID19 -Nasal RAPID Negative (Negative)
== END ==
PROVIDERS: PCP Student in an Organized Health Care Education/Training Program; Referring Provider Physical Medicine & Rehabilitation; Visit Provider Physical Medicine & Rehabilitation
DX: Z20.822 Contact with and (suspected) exposure to COVID-19 (principal)
CPT/HCPCS: 87635; C9803

== ENCOUNTER 2021-08-18 08:37 | Outpatient (CLI) | payer OTHER, SELFPAY ==
[2021-08-18] VITALS (8 sets, daily range): BP systolic 128–167; BP diastolic 62–86; PULSE 67–79; RESP 10–20; TEMP 36.6; O2SAT 99–100
--- NOTE | 2021-08-18 08:38 | DI.RAD.S_ITS ---
PROCEDURE: PAIN C/T INTERLAMINAR INJECT INDICATIONS: SPINAL STENOSIS COMPARISON: [facility], XA, PAIN L/SI FACET INJ/BLK 1STL, 07/30/2021, 11:42. FINDINGS: Fluoroscopic spot filming was performed to verify placement of a spinal needle at the C6-C7 level, as labeled on the films. Appropriate location of the needle tip was confirmed by injection of iodinated contrast. IMPRESSION: No significant intraprocedural abnormality. Dictated by: Brian Robertson M.D. on 08/18/2021 at 9:19 Approved by: Brian Robertson M.D. on 08/18/2021 at 9:20
[2021-08-18] MEDS: MIDAZOLAM 5 MG/5 ML VIAL IV (09:50)
[2021-08-18] MEDS: fentaNYL 100 MCG/2 ML INJ 50 MCG IV (09:50)
[2021-08-18] MEDS: DEXAMETHASONE 10 MG/ML VIAL 30 MG INJ (09:53)
[2021-08-18] MEDS: BUPIVACAINE 0.25% (PF) VIAL 2 ML INJ (09:53)
[2021-08-18] MEDS: IOPAMIDOL 15 ML VIAL 3 ML INJ (09:54)
--- NOTE | 2021-08-18 10:09 | PM.PROC.IR.1 ---
Date/Time/Diagnoses Date of procedure: 08/18/21 Time of procedure: 10:09 Pre-procedure diagnosis: 1. CERVICAL STENOSIS, 2. CERVICAL HNP WITH UPPER EXTREMITY RADICULAR FEATURES This procedure is found to meet the Governor's proclamation 20-24.2 regarding non urgent procedures. This patient meets multiple criteria for the procedure including continuing or worsening of significant or severe pain, combined with further deterioration of the patient's condition or overall health as well as delay in treatment would be expected to result in less positive ultimate medical outcome. Therefore the decision to perform the procedure in an outpatient hospital setting is found to be in accordance with guidelines of the proclamation. Post-procedure diagnosis: same Procedure Notes Procedure: 1. FLUORSCOPICALLY GUIDED CONTRAST CONTROLLED INTERLAMINAR EPIDURAL STEROID INJECTION - C6/7 TL YEISON Indications: Lorne is referred by Dr. Ng for treatment of Cervical HNP with Upper Extremity Paresthesias. Physician: Olu Clement Total Fluoroscopy time (seconds): 28 Total sedation minutes: 12 Complications: none Procedure in detail & Post-procedure care: FINDINGS Cervical Stenosis due to disc deterioration and nerve root irritation and nerve root irritation DESCRIPTION OF PROCEDURE Fluoroscopically guided, contrast-controlled C6/7 translaminar epidural steroid injection with conscious sedation. Following review of allergy and review of potential side effects and complications, including, but not necessarily limited to, infection, allergic reaction, local tissue breakdown, temporary as well as permanent nerve injury, stroke, paralysis, and possible , the patient indicated that patient understood and agreed to proceed. An informed consent document was signed by the patient, witnessed by a nurse, and placed in the patient's chart. Additionally, other treatment options including modalities, medications, and physical therapy were reviewed with the patient. After review of previous anaesthesic history and IV conscious sedation the patient was deemed safe to proceed with today?s procedure with IV conscious sedation as ASA class II designation. Safety time-out was performed to confirm patient ID, procedure to be performed and site of procedure. IV sedation was accomplished with a combination of 2mg of Versed and 50mcg of Fentanyl administered by the RN after DO order, titrated to patient comfort during the course of the procedure while the patient remained responsive to all verbal commands. In the prone position, following sterile prep and drape of the cervical region, the C6/7 translaminar space was identified fluoroscopically. The skin was anesthetized via a 25-gauge 1.5-inch needle with 1% lidocaine solution. At this point, a 25-gauge, 2.5-inch short bevel spinal needle was atraumatically introduced and advanced under fluoroscopic guidance into epidural space at the C6/7 translaminar space. Depth was confirmed on lateral view. Radiological data, including multiple fluoroscopic views of the cervical spine, reveal a spinal needle at the C6/7 translaminar space. Lateral views then show placement of the needle in the epidural space. Subsequent views show contrast material flowing superiorly and inferiorly in the epidural space. DSA fluoroscopy with live contrast injection, once again, confirmed no vascular or intrathecal uptake. At this point, using loss of resistance technique with saline and air, the epidural space was entered. Following negative aspiration, injection of approximately 1.5 cc of Isovue-200 with live fluoroscopy in the AP view confirmed epidural flow in the epidural space without vascular or intrathecal uptake observed. Subsequently, a test dose of 1 cc of 1% lidocaine solution was injected and patient was observed for two minutes without signs or symptoms of complications, including abdominal pain, shortness of breath, bilateral upper or lower extremity weakness, nausea and vomiting, prior to steroid injection. At this point, 3cc or 30mg of dexamethasone was then injected without incident. The patient tolerated the procedure well without signs or symptoms of complications prior to being transferred to the recovery area for further monitoring, The patient was then transferred to the recovery area where they were observed for an appropriate period of time after the injection. The patient reported a VAS score of 6 prior to the procedure and a post-procedure VAS of 0. POST OP INSTRUCTIONS The patient was provided a Pain Log to continue to record their response to the target-specific procedure prior to follow-up visit with the referring provider. Additionally, specific post-injection care instructions and a contact number to our office were provided if concerns arise regarding possible complications associated with the procedure are suspected.
== END 2021-08-18 10:30 | disposition home or self-care (01) ==
LOC: RAD 08:38
PROVIDERS: PCP Student in an Organized Health Care Education/Training Program; Referring Provider Physical Medicine & Rehabilitation; Visit Provider Physical Medicine & Rehabilitation
DX: M48.02 Spinal stenosis, cervical region (principal); M50.123 Cervical disc disorder at C6-C7 level with radiculopathy
CPT/HCPCS: 62321; 99152; J1100; J2250; J3010

== ENCOUNTER 2021-11-16 18:20 | Emergency (ER) | payer OTHER, SELFPAY ==
[2021-11-16 18:26] VITALS: BP 178/107; PULSE 85; RESP 16; TEMP 37; O2SAT 98; BMI 25.1
--- NOTE | 2021-11-16 18:39 | DI.RAD.S_ITS ---
PROCEDURE: XR CHEST 1V INDICATIONS: chest pain TECHNIQUE: One view of the chest was acquired. COMPARISON: [facility], , XR CHEST 2V, 04/09/2020, 13:15. [facility], , CHEST 1 VIEW, 11/28/2014, 14:15. FINDINGS: Surgical changes and devices: None. Lungs and pleura: Lungs are clear. No pleural effusions or pneumothorax. Mediastinum: Mediastinal contours appear normal. Heart size is normal. Bones and chest wall: No suspicious bony lesions. Overlying soft tissues appear unremarkable. IMPRESSION: No acute cardiopulmonary abnormality. Dictated by: Дмитрий Spears M.D. on 11/16/2021 at 19:29 Approved by: Дмитрий Spears M.D. on 11/16/2021 at 19:30
[2021-11-16 18:56] LABS: Add Manual Diff / Slide Review NO; Basophils Absolute Auto 0 /uL (0-100); Basophils Percent Auto 0.6 % (0-2); Eosinophils Absolute Auto 0 /uL (0-450); Eosinophils Percent Auto 0.6 % (2-4); Hematocrit 44.2 % (41-53); Hemoglobin 15.4 g/dL (13.5-17.5); Lymphocytes Absolute Auto 2400 /uL (1100-4500); Lymphocytes Percent Auto 36.5 % (25-40); Mean Corpuscular Hemoglobin 32.8 PG (26-34); Mean Corpuscular Volume 93.8 fL (80-100); Monocytes Absolute Auto 600 /uL (0-900); Monocytes Percent Auto 9.2 % (3-14); Neutrophils Absolute Auto 3400 /uL (1500-7000); Neutrophils Percent Auto 53.1 % (50-75); Platelet Count 229 X10^3/uL (150-400); Red Blood Cell Count 4.71 X10^6/uL (4.5-5.9); Red Cell Distribution Width 12.3 % (11.6-14.8); White Blood Cell Count 6.4 X10^3/uL (4.5-11.0)
[2021-11-16 19:04] LABS: Albumin Globulin Ratio 1.4 (1.0-2.8); Alkaline Phosphatase 54 U/L (38-126); Aspartate Aminotransferase 64 IU/L (17-59); BUN Creatinine Ratio 11.1 (6-22); Bilirubin Total 0.8 mg/dL (0.2-1.3); Blood Urea Nitrogen 12 mg/dL (9-20); Calcium 9.8 mg/dL (8.4-10.2); Carbon Dioxide 26 mmol/L (22-32); Chloride 104 mmol/L (98-107); Creatine Kinase 255 U/L (55-170); Estimated Glomerular Filt Rate > 60 mL/min (>60); Globulin 3.7 g/dL (1.7-4.1); Glucose 100 mg/dL (70-100); HEMOLYSIS 19 (0-50); Lipase 105 U/L (23-300); Magnesium 1.9 mg/dL (1.6-2.3); Potassium 3.6 mmol/L (3.4-5.1); Sodium 140 mmol/L (137-145); Total Protein 8.7 g/dL (6.3-8.2)
[2021-11-16 19:14] LABS: Troponin I < 0.012 ng/mL (0.01-0.034)
[2021-11-16 19:18] LABS: Alanine Aminotransferase 106 IU/L (<50)
[2021-11-16 19:19] LABS: CKMB % Relative Index 0.3 % (1.5-5.0); Creatine Kinase MB 0.64 ng/mL (<2.37)
--- NOTE | 2021-11-16 19:21 | ED.CHESTPAIN ---
HPI - Chest Pain General Chief Complaint: Chest Pain Stated Complaint: CHEST PAIN Time Seen by Provider: 11/16/21 19:00 History of Present Illness HPI narrative: 41-year-old male with history of cervical stenosis, anxiety depression with upper extremity paresthesias presenting today with some chest discomfort. He chronically has this back and neck pain with some arm paresthesias today had a little bit of chest discomfort as well as yesterday. He describes as a dull ache on left side of his chest. Hard to say what makes it better or worse. He says it lasts for maybe half a day but also hard to pinpoint. Today he went to go see his grandmother who happens to be dying knee thinks maybe that exacerbated some of his chest discomfort. He denies any shortness of breath. No recent traveling no hemoptysis no prior history of blood clot. Dad did of stroke from PFO. Take ibuprofen a little earlier this afternoon it seemed to help a little. It does not seem to be positional or reproducible. Related Data Home Medications Medication Instructions Recorded Confirmed THC #1 ea 04/09/20 05/27/21 ipratropium bromide 21 mcg (0.03 2 spray NASAL BID 04/09/20 08/18/21 %) nasal spray Previous Rx's Medication Instructions Recorded fluticasone propionate 50 2 spray INTRANASAL DAILY #15.8 ml 09/09/20 mcg/actuation nasal spray,suspension (Flonase Allergy Relief) cyclobenzaprine 10 mg tablet 10 mg PO BID PRN #60 tab 06/11/21 diazepam 10 mg tablet (Valium) 10 mg PO .COMPLEX PRN #10 tab 08/17/21 Allergies Allergy/AdvReac Type Severity Reaction Status Date / Time buspirone AdvReac Intermediate Agitation Verified 08/18/21 08:45 gabapentin AdvReac Intermediate Loss of Verified 08/18/21 08:45 libido mirtazapine AdvReac Intermediate Excessive Verified 08/18/21 08:45 sedation, muscle soreness Review of Systems Review of Systems Narrative: GENERAL: Denies chills, fatigue, malaise, fever, sweats, travel HEENT: Denies sinus pain, ear pain, sore throat, difficulty swallowing, neck pain RESPIRATORY: Denies dyspnea, cough, wheezing, hemoptysis, sputum. CARDIOVASCULAR: See HPI GASTROINTESTINAL: Denies nausea, vomiting, abdominal pain, diarrhea, constipation, melena. : Denies dysuria, frequency, incontinence, hematuria, urinary retention, flank pain. MUSCULOSKELETAL: Denies weakness, joint pain, or bony pain SKIN: No rash, no erythema, no pruritus NEUROLOGIC: Denies weakness, dizziness, headache, numbness, change in speech, confusion PSYCHIATRIC: No concerning psychosocial issues. 12 point review of systems is negative except for those stated above and HPI Patient History Medical History Ankle pain (~1999) Anxiety Chicken pox Chronic back pain (~1999) Facet arthropathy, cervical Facet arthropathy, lumbar Foot pain Fractures Hearing loss (~1998) Herniated nucleus pulposus, C5-6 right Herniated nucleus pulposus, C6-7 Herniated nucleus pulposus, L5-S1 Positive PPD (~1998) Recurrent sinusitis (~2000) Restless leg syndrome (~2016) Shoulder pain (~2012) Substance abuse TIA (transient ischemic attack) (~2014) Tinnitus Surgical History History of nasal surgery (~02/2003) Family History Father History of heart disease Hyperlipidemia Hypertension Stroke Brother Hypertension Hyperlipidemia Mental health problem Grandfather History of heart disease Hyperlipidemia Hypertension Social History Smoking Status: Never smoker Smoking Status: Never smoker Exam Initial Vital Signs Initial Vital Signs: Vital Signs Temperature 98.6 F 11/16/21 18:26 Pulse Rate 85 11/16/21 18:26 Respiratory Rate 16 11/16/21 18:26 Blood Pressure 178/107 H 11/16/21 18:26 Pulse Oximetry 98 11/16/21 18:26 GENERAL: Alert well-appearing 41-year-old male in no acute distress. HEENT: Head atraumatic,EOMI, pupils reactive, face symmetric, moist mucous membranes CARDIOVASCULAR: Regular rate and rhythm without murmurs, rubs or gallops. RESPIRATORY: Breath sounds equal bilaterally, no wheezes rales or rhonchi. ABDOMEN: Soft, nontender. Normoactive bowel sounds all 4 quadrants. No guarding or rebound. EXTREMITIES: Normal range of motion, no clubbing or edema. Neurovascularly intact NEUROLOGICAL: Alert and oriented x4.Normal gait and speech. SKIN: Warm, dry, no laceration, no petechiae, no rashes or lesions. Scores HEART Score Heart Score history: Slightly Suspicious Heart Score EKG: Normal Heart Score Age: < 45 years old Heart Score risk factors: No known risk factors Heart Score troponin: < or = to normal limit Heart Score Total: 0 PERC Score Age greater than or equal to 50 years: No Heart rate greater than or equal to 100 bpm: No Room Air O2 Sat less than 95%: No Unilateral leg swelling: No Recent trauma or surgery: No Hemoptysis: No Prior PE or DVT: No Hormone Use: No Total PERC Score: 0 Course Orders Ordered: ED Orders 11/16/21 18:34 Complete Blood Count AUTO DIFF Stat Comprehensive Metabolic Panel Stat D Dimer Stat Lipase Stat Magnesium Stat Troponin & CK Cardiac Panel Stat 11/16/21 18:39 XR chest 1V Stat EKG-12 Lead Stat Vital Signs Vital signs: Vital Signs - 8 hr 11/16/21 18:26 11/16/21 19:47 11/16/21 20:00 Temperature 98.6 F Pulse Rate 85 59 L 55 L Respiratory Rate 16 12 12 Blood Pressure 178/107 H 156/92 H Pulse Oximetry 98 MDM - Chest Pain Lab Data Result diagrams: 11/16/21 18:34 11/16/21 18:34 Labs: Lab Results 11/16/21 11/16/21 11/16/21 Range/Units 18:34 18:34 18:34 WBC 6.4 (4.5-11.0) X10^3/uL RBC 4.71 (4.5-5.9) X10^6/uL Hgb 15.4 (13.5-17.5) g/dL Hct 44.2 (41-53) % MCV 93.8 (80-100) fL MCH 32.8 (26-34) PG MCHC 35.0 (30-36) % RDW 12.3 (11.6-14.8) % Plt Count 229 (150-400) X10^3/uL Neut % (Auto) 53.1 (50-75) % Lymph % (Auto) 36.5 (25-40) % [place] % (Auto) 9.2 (3-14) % Eos % (Auto) 0.6 L (2-4) % Baso % (Auto) 0.6 (0-2) % Neut # (Auto) 3400 (9699-5126) /uL Lymph # (Auto) 2400 (1723-4742) /uL [place] # (Auto) 600 (0-900) /uL Eos # (Auto) 0 (0-450) /uL Baso # (Auto) 0 (0-100) /uL D-Dimer < 200 (<230) ng/mL Sodium 140 (137-145) mmol/L Potassium 3.6 (3.4-5.1) mmol/L Chloride 104 (98-107) mmol/L Carbon Dioxide 26 (22-32) mmol/L BUN 12 (9-20) mg/dL Creatinine 1.08 (0.66-1.25) mg/dL Estimated GFR > 60 (>60) mL/min BUN/Creatinine Ratio 11.1 (6-22) Glucose 100 (70-100) mg/dL Calcium 9.8 (8.4-10.2) mg/dL Magnesium 1.9 (1.6-2.3) mg/dL Total Bilirubin 0.8 (0.2-1.3) mg/dL AST 64 H (17-59) IU/L ALT 106 H (<50) IU/L Alkaline Phosphatase 54 (38-126) U/L Total Creatine Kinase 255 H (55-170) U/L CK-MB (CK-2) 0.64 (<2.37) ng/mL CK-MB (CK-2) Rel Index 0.3 L (1.5-5.0) % Troponin I < 0.012 (0.01-0.034) ng/mL Total Protein 8.7 H (6.3-8.2) g/dL Albumin 5.0 (3.5-5.0) g/dL Globulin 3.7 (1.7-4.1) g/dL Albumin/Globulin Ratio 1.4 (1.0-2.8) Lipase 105 (23-300) U/L Imaging Data Chest x-ray: Radiologist's Impression: Lorne Ngo MR#: [id number] : 1980 Acct:[id number] Age/Sex: 41 / M Date of Service: 11/16/21 Loc: ED Accession Number: [id number] ?? Procedure: XR chest 1V Ordering Provider: Marie Rueda D.O. PROCEDURE:? XR CHEST 1V ? INDICATIONS:? chest pain ? TECHNIQUE:? One view of the chest was acquired.? ? COMPARISON:? [facility], , XR CHEST 2V, 04/09/2020, 13:15.? [facility], , CHEST 1 VIEW, 11/28/2014, 14:15. ? FINDINGS:? ? Surgical changes and devices:? None.? ? Lungs and pleura:? Lungs are clear.? No pleural effusions or pneumothorax.? ? Mediastinum:? Mediastinal contours appear normal.? Heart size is normal.? ? Bones and chest wall:? No suspicious bony lesions.? Overlying soft tissues appear unremarkable.? ? IMPRESSION:? No acute cardiopulmonary abnormality. ? ? ? Dictated by: Дмитрий Spears M.D. on 11/16/2021 at 19:29 ? ? Approved by: Дмитрий Spears M.D. on 11/16/2021 at 19:30 ? ECG Data Interpretation: Normal sinus rhythm rate 75 MS interval 162 QRS [address] changes or T-wave inversions similar to previous MDM Narrative Medical decision making narrative: At this time patient has some atypical chest pain ongoing for more than 24 hours D-dimer and troponin are negative. EKG is negative. All may be related to his chronic ongoing cervical pain. At this time low heart score and minimal risk factors. He also has negative PERC score. Initially blood pressure was elevated but has gone down in the emergency department. At this time he and I did discuss about checking his blood pressure at home and following up with his primary care provider. I discussed all findings with the patient , Education has been performed regarding treatment plan, diagnosis, warning signs and symptoms and all concerns have been addressed. Verbally agree with and understood all of the above. Discharge Plan Departure Patient Disposition: Home Clinical Impression: Atypical chest pain Instructions: DI for Atypical Chest Pain Activity Restrictions/Additional Instructions: *You have been diagnosed with atypical chest pain *What to do: At this time I recommend following up with her primary care provider for possible further testing such as a stress test and/or echocardiogram. If your chest pain gets worse please return to the emergency. *Continue to take medications as directed *Follow up with your primary care provider in 2-3 days or call [phone] *Return to ER if you should have increasing chest pain shortness of breath, palpitations or any new, worsening or concerning symptoms Prescriptions: No Action fluticasone propionate [Flonase Allergy Relief] 50 mcg/actuation spray,suspension 2 spray intranasal DAILY Qty: 15.8 11RF Rx Instructions: administer into each nostril cyclobenzaprine 10 mg tablet 10 mg PO BID PRN (Reason: muscle spasm) Qty: 60 1RF ipratropium bromide 0.03 % spray,non-aerosol 2 spray NASAL BID 0RF Rx Instructions: administer into each nostril (DME) THC Qty: 1 0RF Rx Instructions: Has tried edibles, liquids, etc diazepam [Valium] 10 mg tablet 10 mg PO .COMPLEX PRN (Reason: sedation) Qty: 10 0RF Rx Instructions: 10mg PO 1-2 tabs pre-MRI, procedure and 1 tab nocturnally for possible steroid flare PRN, MAX DOSE 3TABS/24hr. Referrals: Edinson Ng MD [Primary Care Provider] -
[2021-11-16 19:47] VITALS: BP 156/92; PULSE 59; RESP 12
[2021-11-16 19:59] LABS: D Dimer < 200 ng/mL (<230)
[2021-11-16 20:00] VITALS: PULSE 55; RESP 12
== END 2021-11-16 20:31 | disposition home or self-care (01) ==
PROVIDERS: Emergency Provider Emergency Medicine; PCP Student in an Organized Health Care Education/Training Program
DX: R07.89 Other chest pain (principal); R03.0 Elevated blood-pressure reading, without diagnosis of hypertension
CPT/HCPCS: 36415; 71045; 80053; 82550; 82553; 83690; 83735; 84484; 85025; 85379; 93005; 99284